=== PATIENT | male | born 1940 | race Caucasian/White ===

== ENCOUNTER → 2016-08-04 | Outpatient (CLI) | payer MEDICARE | END | disposition home or self-care (01) | LOC: CFH 13:33 | PROVIDERS: ATTEND Family Medicine | DX: I11.0 Hypertensive heart disease with heart failure (principal); I50.30 Unspecified diastolic (congestive) heart failure; I08.3 Combined rheumatic disorders of mitral, aortic and tricuspid valves; I37.1 Nonrheumatic pulmonary valve insufficiency; I51.7 Cardiomegaly; E78.5 Hyperlipidemia, unspecified | CPT/HCPCS: 93306 ==

== ENCOUNTER → 2017-11-23 | Outpatient (CLI) | payer MEDICARE | END | disposition home or self-care (01) | LOC: PETCFH 08:26 | PROVIDERS: ATTEND Internal Medicine Endocrinology, Diabetes & Metabolism | DX: C73 Malignant neoplasm of thyroid gland (principal); R91.1 Solitary pulmonary nodule | CPT/HCPCS: 78815; A9552 ==

== ENCOUNTER 2018-10-05 07:42 | Emergency (ER) | payer MEDICARE ==
[~2018-10-05] VITALS: Ht 175.3 cm; Wt 80.1 kg
[2018-10-05 07:50] VITALS: BP 161/86
[2018-10-05] MEDS ORDERED: PROPARACAINE OPHTH 0.5%, 15ML ONE (08:19)
[2018-10-05] MEDS ORDERED: FLUORESCEIN OPHTHALMIC 1 MG STRIP ONE (08:19)
--- NOTE | 2018-10-05 08:58 | NUR ---
Patient/Caregiver given discharge instructions and they have confirmed that they understand the instructions. Patient ambulatory with steady gait.
--- NOTE | 2018-10-05 09:02 | NUR ---
Patient/Caregiver given discharge instructions and they have confirmed that they understand the instructions. Patient ambulatory with steady gait.
== END 2018-10-05 09:04 | disposition home or self-care (01) ==
LOC: ED 08:50
DX: B02.29 Other postherpetic nervous system involvement (principal); I10 Essential (primary) hypertension
CPT/HCPCS: 99283